=== PATIENT | male | born 1965 | race Hispanic/Latino ===

== ENCOUNTER 2017-01-02 12:09 | Observation (INO) | payer MEDICAID ==
[2017-01-02 12:56] VITALS: BMI 27.1
[2017-01-02] MEDS ORDERED: Morphine 4 MG/ML VIAL IVP STA (14:36)
[2017-01-02] MEDS ORDERED: Morphine 4 MG/ML VIAL ONE (14:58)
--- NOTE | 2017-01-02 15:03 | ED PDOC ---
HPI: Back Time Seen by Provider: 01/02/17 13:06 Chief Complaint (Nursing): Back Pain Chief Complaint (Provider): Back Pain History Per: Patient Onset/Duration Of Symptoms: Other (x 1 week) Current Symptoms Are (Timing): Still Present Additional Complaint(s): Raulito is a 51 year old male who presents to the Emergency Department complaining of lower back pain for the past week. States "he was ripping carpet from floor helping a friend". Since then, patient has been having lower back pain radiating down to his left leg. Patient states 2 days ago that he develop a "numbness wave-like sensation" left side of his body starting from left scalp down to abdomen, but not painful. Denies weakness, trauma, continence, hematuria, dysuria, history of stroke, and vision changes. PMD: No Family Provider Past Medical History Reviewed: Historical Data, Nursing Documentation, Vital Signs Vital Signs: Last Vital Signs Temp 97.3 F L 01/02/17 12:57 Pulse 74 01/02/17 12:57 Resp 18 01/02/17 12:57 BP 113/63 01/02/17 12:57 Pulse Ox 96 01/02/17 12:57 - Medical History PMH: Anxiety, Back Problems, Bipolar Disorder, Depression, Hypercholesterolemia Denies: Diabetes, Hepatitis, HIV, HTN, Seizures, Sexually Transmitted Disease - Surgical History Surgical History: Hernia Repair (b/l inguinal) - Family History Family History: States: Unknown Family Hx - Social History Current smoker - smoking cessation education provided: Yes (20 years) SMOKER/PACKS PER DAY:: 2 - Immunization History Hx Tetanus Toxoid Vaccination: No Hx Influenza Vaccination: No Hx Pneumococcal Vaccination: No - Home Medications Home Medications: Ambulatory Orders Medication Instructions Recorded Inland Carbonate [Inland 300 mg PO DAILY 04/08/16 Carbonate 300MG] hydrOXYzine Pamoate [Vistaril] 50 mg PO BID 04/08/16 - Allergies Allergies/Adverse Reactions: Allergies Allergy/AdvReac Type Severity Reaction Status Date / Time No Known Allergies Allergy Verified 01/02/17 12:57 NIHSS Stroke Scale - Date/Time Evaluation Performed Date Performed: 01/02/17 Time Performed: 14:36 When Was NIHSS Performed: 24 hours post onset S/S - How Severe is the Stroke Level of Consciousness: 0=Alert LOC to Questions: 0=Both comments correct Best Gaze: 0=Normal Visual: 0=No visual loss Facial: 0=Normal Motor Arm - Left: 0=No drift Motor Arm - Right: 0=No drift Motor Leg - Left: 0=No drift Motor Leg - Right: 0=No drift Limb Ataxia: 0=Absent Sensory: 0=Normal Best Language: 0=No aphasia Dysarthia: 0=Normal articulation Extinction & Inattention (Neglect): 0=Normal, no object rTPA Inclusion/Exclusion - Refusal of Treatment Patient Refused Treatment: No - Inclusion Criteria for Altepase Patient is 18 years or Older: Yes Clinical DX Ischemic Stroke Cause Neurological Deficit: Yes Time of Onset Established Less Than 270 Mins Before TX Begin: No Risk/Benefit Discussed With Patient/Family Member Present: Yes - Exclusion Criteria for Altepase Uncontrolled Hypertension at Time of TX (SBP>185 or DBP>110): No Active Internal Bleeding: No Known Bleeding Diathesis: No Evidence of an Intracranial Hemorrhage: No Evidence Major Acute Infarct w/ Signs Greater Than 1/3 MCA: No Suspicion of Subarachnoid Bleed on PreTX Eval(CT: neg bleed): No - Warning to TPA With Conditions Following Conditions Weighed Against Anticipated Benefit: Yes Condition: Stroke Serevity Too Mild Additional Condition (For 3-4.5 Hour Window): NIHSS Above 25 Review of Systems ROS Statement: Except As Marked, All Systems Reviewed And Found Negative Constitutional: Negative for: Weakness, Other (trauma) Genitourinary Male: Negative for: Dysuria, Incontinence, Hematuria Musculoskeletal: Positive for: Back Pain (Lower that radiates down to left leg) Neurological: Positive for: Numbness ("sensation"). Negative for: Other ( Vision Changes) Physical Exam - Reviewed Nursing Documentation Reviewed: Yes Vital Signs Reviewed: Yes - Physical Exam Appears: Positive for: Well, Non-toxic Head Exam: Positive for: ATRAUMATIC, NORMAL INSPECTION, NORMOCEPHALIC Skin: Positive for: Normal Color Eye Exam: Positive for: Normal appearance ENT: Positive for: Normal ENT Inspection Neck: Positive for: Normal Cardiovascular/Chest: Positive for: Regular Rate, Rhythm Respiratory: Positive for: Normal Breath Sounds. Negative for: Respiratory Distress Gastrointestinal/Abdominal: Positive for: Normal Exam Back: Negative for: L CVA Tenderness, R CVA Tenderness Neurologic/Psych: Positive for: Other (Equal Strength Bilateral). Negative for : Aphasia, Facial Droop - Laboratory Results Result Diagrams: 01/02/17 15:14 01/02/17 15:14 - ECG O2 Sat by Pulse Oximetry: 96 (RA) Pulse Ox Interpretation: Normal - Radiology X-Ray: Interpreted by Me (CXR) X-Ray Interpretation: No Acute Disease - Progress ED Course And Treament: Case d/w Dr. Ornelas and agrees CVA workup is necessary. Labs ordered. CT head w/o contrast ordered. Morphine 4mg IV, zofran 4mg IV ordered. Case d/w Dr. Arshad and arrangements made for 23 hr observation. Case d/w Dr. Mancilla, neuro surgeon's assistant, who requests MRI of bran, MRA head/neck to be done. Ativan 1mg IV ordered. Pt is "claustrophobic." ASA PO ordered. Medical Decision Making Medical Decision Making: Time: 14:35 Plan: - CT Head without Contrast - EKG - CMP - Troponin I - CBC - Chest Portable X-Ray - Morphine 4 mg IVP - Zofran Inj Scribe Attestation: Documented by Kendrick Zimmerman, acting as a scribe for Jose De Jesus Rodriguez PA-C Provider Scribe Attestation: All medical record entries made by the Scribe were at my direction and personally dictated by me. I have reviewed the chart and agree that the record accurately reflects my personal performance of the history, physical exam, medical decision making, and the department course for this patient. I have also personally directed, reviewed, and agree with the discharge instructions and disposition. Disposition - Clinical Impression Clinical Impression: Paresthesias - Disposition Disposition Time: 17:07 Condition: STABLE
[2017-01-02 15:18] LABS: BASO # 0.2 K/uL (0.0-0.2); BASO % 2.5 % (0.0-2.0); EOS # 0.4 K/uL (0.0-0.7); EOS % 6.5 % (0.0-4.0); HEMATOCRIT 46.2 % (35.0-51.0); LYMPH # 2.2 K/uL (1.0-4.3); LYMPH % 31.7 % (20.0-40.0); MEAN CELL VOLUME 94.6 fl (80.0-94.0); MEAN CORPUSCULAR HEMOGLOBIN 32.3 pg (27.0-31.0); MEAN CORPUSCULAR HGB CONC 34.1 g/dL (33.0-37.0); MEAN PLATELET VOLUME 7.9 fl (7.2-11.7); MONO # 0.7 K/uL (0.0-0.8); MONO % 10.7 % (0.0-10.0); NEUT # 3.4 K/uL (1.8-7.0); NEUT % 48.6 % (50.0-75.0); NRBC % 0.2 % (0.0-0.0); RED CELL DISTRIBUTION WIDTH 13.4 % (11.5-14.5); WHITE BLOOD COUNT 6.9 K/uL (4.8-10.8)
[2017-01-02 15:30] LABS: URINE BILIRUBIN NEGATIVE (NEGATIVE); URINE BLOOD NEGATIVE (NEGATIVE); URINE COLOR YELLOW (YELLOW); URINE GLUCOSE (UA) NEG (Normal); URINE KETONE NEGATIVE (NEGATIVE); URINE LEUKOCYTE ESTERASE NEG Leu/uL (Negative); URINE PROTEIN NEGATIVE (NEGATIVE); URINE UROBILINOGEN 0.2-1.0 mg/dL (0.2-1.0); WBC URINE 1 /hpf (0-5)
[2017-01-02 15:32] LABS: RBC URINE 3 /hpf (0-3)
[2017-01-02 15:45] LABS: ALB/GLOB RATIO 1.3 (1.0-2.1); ALKALINE PHOSPHATASE 54 U/L (38-126); ALT/SGPT 31 U/L (21-72); AST/SGOT 24 U/L (17-59); BILIRUBIN,TOTAL 0.3 mg/dl (0.2-1.3); BLOOD UREA NITROGEN 20 mg/dl (9-20); CALCIUM 9.1 mg/dL (8.4-10.2); CARBON DIOXIDE 27 mmol/L (22-30); CHLORIDE 105 mmol/L (98-107); GFR AFRICAN-AMERICAN > 60; GLUCOSE,RANDOM 84 mg/dL (75-110); POTASSIUM 3.8 MMOL/L (3.6-5.0); SODIUM 140 mmol/l (132-148); TOTAL PROTEIN 7.7 G/DL (6.3-8.2)
--- NOTE | 2017-01-02 16:03 | CT ---
PROCEDURE: CT HEAD WITHOUT CONTRAST. HISTORY: paresthesias COMPARISON: None available. TECHNIQUE: Axial computed tomography images were obtained through the head/brain without intravenous contrast. Radiation dose: Total exam DLP = 862.98 mGy-cm. This CT exam was performed using one or more of the following dose reduction techniques: Automated exposure control, adjustment of the mA and/or kV according to patient size, and/or use of iterative reconstruction technique. FINDINGS: HEMORRHAGE: No intracranial hemorrhage. BRAIN: No mass effect or edema. The oates-white matter differentiation appears intact. Please note that MRI with diffusion imaging is more sensitive in the detection of acute ischemic event. VENTRICLES: No hydrocephalus. CALVARIUM: Unremarkable. PARANASAL SINUSES: Unremarkable as visualized. No significant inflammatory changes. MASTOID AIR CELLS: Unremarkable as visualized. No inflammatory changes. OTHER FINDINGS: None. IMPRESSION: No acute intracranial pathology identified.
[2017-01-02] MEDS ORDERED: Gadodiamide 287 MG/ML VIAL (15ML) IV ONE (17:47)
[2017-01-02] MEDS ORDERED: Sodium Chloride 0.9% 0 ML IV ONE (17:47)
--- NOTE | 2017-01-02 17:49 | CP.PCM.HP ---
History of Present Illness - History of Present Illness History of Present Illness: 51 y/o male with a PMHx of HLD and herniated disc presented to [facility] ED complaining of back pain as well as left-sided numbness/tingling from his head down to his leg. Pt reports he was working and pulling carpet last week when he felt a "pop" sensation in his back. Pain was about 7/10, localized to his lower left side with an associated "static tv like feeling" going down his left leg. He reports the pain was similar to prior episodes and shrugged it off, thinking it would go away after a few days of rest and ibuprofen usage. He reports taking approx 4 500mg tablets of ibuprofen (~2000mg daily) since . On Monday morning he woke up and felt a "numbing like wave" over the left side of his body. The sensation started on the left side of his head and migrated down to his left arm and finally to his left leg. He reports the sensation gradually subsided and returned several times. He denies any associated headaches, changes in vision, lightheadedness, dizziness, CP/SOB/Palpitations, N/V/D/C, diaphoreis, facial weakness, clumsiness, slurred speech. He reports having a similar episode approx 10 years ago after doing cocaine. Last day of cocaine abuse was Monday evening. At bedside pt currently denies symptoms. No other complaints/concerns. ROS: as per HPI, 10 systems reviewed found to be negative PMD: none, last visit in [facility] >1 year ago PMHx: HLD, multiple vertebral herniations PsurgHx: denies Meds: Ibuprofen PRN for back pain FamilyHx: father murdered, mother alive, sister alive. Denies hx of CAD, DM, [place] , Stroke. SocialHx: 2PPD >10 years, 1 PPD since 16 prior to that, intermittent cocaine abuse since 19. Social ETOH abuse. -Next of kin: sister Sophia Barbosa -Code status: full code ED Course: Vitals on presentation: T: 97.3 F, HR 74, BP 113/63, RR 18, POX 96% RA Labs CBC: 6.9>15.7/46.2<238 CMP: wnl Coags: 10.7/1.0/29.1 Troponin I: <0.0120 UA UTOX: + cocaine Imaging Noncontrast head CT: no acute hemorrhage MRI/MRA: pending CXR EKG Treatment: aspirin, zofran, ativan, morphine Consults: neurology admitted to tele Present on Admission - Present on Admission Any Indicators Present on Admission: No History of DVT/PE: No History of Uncontrolled Diabetes: No Urinary Catheter: No Decubitus Ulcer Present: No Past Patient History - Past Social History Smoking Status: Heavy Smoker > 10 Cigarettes Daily Alcohol: Social Drugs: Cocaine Home Situation {Lives}: Alone - CARDIAC Hx Hypercholesterolemia: Yes Hx Hypertension: No - PULMONARY Hx Tuberculosis: No - NEUROLOGICAL Hx Seizures: No - HEMATOLOGICAL/ONCOLOGICAL Hx Human Immunodeficiency Virus (HIV): No - GENITOURINARY/GYNECOLOGICAL Hx Sexually Transmitted Disorders: No - PSYCHIATRIC Hx Anxiety: Yes Hx Bipolar Disorder: Yes Hx Depression: Yes - SURGICAL HISTORY Hx Surgeries: Yes Other/Comment: bilateral hernia when child. - ANESTHESIA Hx Anesthesia: Yes Hx Anesthesia Reactions: No Meds Allergies/Adverse Reactions: Allergies Allergy/AdvReac Type Severity Reaction Status Date / Time No Known Allergies Allergy Verified 01/02/17 12:57 Physical Exam - Constitutional Appears: Non-toxic, No Acute Distress - Head Exam Head Exam: ATRAUMATIC, NORMOCEPHALIC - Eye Exam Eye Exam: EOMI. absent: Conjunctival injection, Scleral icterus Pupil Exam: PERRL. absent: Miosis, Mydriatic - ENT Exam ENT Exam: Mucous Membranes Moist - Neck Exam Neck exam: Positive for: Full Rom Additional comments: spurlings test negative bilaterally - Respiratory Exam Respiratory Exam: Clear to Auscultation Bilateral, NORMAL BREATHING PATTERN. absent: Accessory Muscle Use, Rales, Rhonchi, Wheezes, Respiratory Distress - Cardiovascular Exam Cardiovascular Exam: REGULAR RHYTHM, RRR, +S1, +S2. absent: Diastolic murmur, JVD, Rubs, +S4, Systolic Murmur - GI/Abdominal Exam GI & Abdominal Exam: Normal Bowel Sounds, Soft. absent: Pulsatile Mass, Tenderness - Extremities Exam Extremities exam: Positive for: normal capillary refill, normal inspection, pedal pulses present. Negative for: calf tenderness, pedal edema, tenderness - Back Exam Back exam: paraspinal tenderness Additional comments: straight leg raise + at 45 degrees on the left - Neurological Exam Neurological exam: Alert, CN II-XII Intact, Normal Gait, Oriented x3, Reflexes Normal - Expanded Neurological Exam Expanded Patient oriented to: person, place, time Speech: Fluid Speech Cranial nerves: EOM's Intact: Normal, Facial Sensation: Normal, Gag Reflex: Normal Ataxia: No Cerebellar Function: Finger to Nose: Normal, Heel to [place]: Normal, Romberg: Normal Upper motor neuron: Babinski Sign: Normal Neuro motor strength exam: Left Upper Extremity: 5, Right Upper Extremity: 5, Left Lower Extremity: 5, Right Lower Extremity: 5 DTR: Achilles Tendon Left: 1+, Achilles Tendon Right: 1+, Patellar Left: 1+, Patellar Right: 1+ Coma Scale Eye Opening: SPONTANEOUS Coma Scale Motor Response: OBEYS COMMANDS Coma Scale Verbal: Oriented Coma Scale Total: 15 - Psychiatric Exam Psychiatric exam: Normal Affect - Skin Skin Exam: Dry, Intact, Normal Color, Warm Results - Vital Signs Recent Vital Signs: Last Vital Signs Temp 97.3 F L 01/02/17 12:57 Pulse 74 01/02/17 12:57 Resp 18 01/02/17 12:57 BP 113/63 01/02/17 12:57 Pulse Ox 96 01/02/17 17:14 - Labs Result Diagrams: 01/02/17 15:14 01/02/17 15:14 Labs: Laboratory Results - last 24 hr 01/02/17 01/02/17 01/02/17 15:14 15:14 15:14 WBC 6.9 RBC 4.88 Hgb 15.7 Hct 46.2 MCV 94.6 H D MCH 32.3 H MCHC 34.1 RDW 13.4 Plt Count 238 MPV 7.9 Neut % (Auto) 48.6 L Lymph % (Auto) 31.7 [place] % (Auto) 10.7 H Eos % (Auto) 6.5 H Baso % (Auto) 2.5 H Neut # 3.4 Lymph # 2.2 [place] # 0.7 Eos # 0.4 Baso # 0.2 Sodium 140 Potassium 3.8 Chloride 105 Carbon Dioxide 27 Anion Gap 12 BUN 20 Creatinine 0.8 Est GFR ( Amer) > 60 Est GFR (Non-Af Amer) > 60 Random Glucose 84 Calcium 9.1 Total Bilirubin 0.3 AST 24 ALT 31 Alkaline Phosphatase 54 Troponin I < 0.0120 Total Protein 7.7 Albumin 4.3 Globulin 3.4 Albumin/Globulin Ratio 1.3 Urine Color Yellow Urine Clarity Clear Urine pH 7.0 Ur Specific [place] 1.017 Urine Protein Negative Urine Glucose (UA) Neg Urine Ketones Negative Urine Blood Negative Urine Nitrate Negative Urine Bilirubin Negative Urine Urobilinogen 0.2-1.0 Ur Leukocyte Esterase Neg Urine RBC (Auto) 3 Urine Microscopic WBC 1 Assessment & Plan - Assessment and Plan (Free Text) Assessment: Assessment: 51 y/o male with PMHx of HLD, back pain, and substance abuse admitted for evaluation of suspected TIA. Plan: 1) Suspected TIA: -ABCD2 score: 2 (symptom duration >60mins) -NIHSS: 0 -monitor vitals, BP currently stable -admitted to [facility] for cardiac monitoring -Noncontrast Head CT: no acute intracranial pathology -Coags: wnl -CMP: wnl -Troponin I: negative (<0.0120) -Lipid panel: pending -TSH: pending -Hemoglobin A1c: pending -ESR: pending -Echo: pending -Zofran 4mg IVP Q6H PRN nausea -s/p 325mg ASA in ED -Neurology consult: pending Brain/Neck MRA, will f/u recommendations 2) Chronic Back Pain with Sciatica: -Tylenol 650mg Q6H PRN moderate pain -Morphine 2mg IVP Q6H PRN severe pain 3) History of Cocaine Abuse: -UTOX: positive for cocaine metabolites -monitor for signs/symptoms of withdrawal. -Ativan 1mg Q6H PRN agitation 4) DVT Prophylaxis: -325mg Aspirin given in ED -SCDs PRN -Lovenox 40mg SC QD
[2017-01-02 19:36] LABS: PARTIAL THROMBOPLASTIN TIME 29.1 Seconds (25.6-37.1)
[2017-01-02 20:11] LABS: THYROID STIMULATING HORMONE 2.59 mIU/ML (0.46-4.68)
[2017-01-03 04:50] VITALS: RESP 18
[2017-01-03] MEDS ORDERED: Enoxaparin 40 mg Syringe SC SCH (09:00)
--- NOTE | 2017-01-03 10:02 | RAD ---
HISTORY: clearance COMPARISON: Chest radiographs 11/10/2015. FINDINGS: LUNGS: No active pulmonary disease. PLEURA: No significant pleural effusion identified, no pneumothorax apparent. CARDIOVASCULAR: Normal. OSSEOUS STRUCTURES: No significant abnormalities. VISUALIZED UPPER ABDOMEN: Normal. OTHER FINDINGS: None. IMPRESSION: No interval acute cardiopulmonary disease appreciated.
--- NOTE | 2017-01-03 10:58 | CARD ---
APPROVED REPORT EKG Measurement Heart [id number] <Conclusion> Normal sinus rhythm Normal ECG
[2017-01-03 12:05] VITALS: BP 112/68; PULSE 72; TEMP 98.5; O2SAT 97
--- NOTE | 2017-01-03 12:07 | CARD ---
APPROVED REPORT EXAM: Two-dimensional and M-mode echocardiogram with Doppler and color Doppler. Other Information Quality : GoodRhythm : NSR INDICATION CVA/TIA 2D DIMENSIONS IVSd0.94 (0.7-1.1cm)LVDd4.51 (3.9-5.9cm) LVOT Diameter2.13 (1.8-2.4cm)PWd0.98 (0.7-1.1cm) IVSs1.24 (0.8-1.2cm)LVDs2.79 (2.5-4.0cm) FS (%) 38.3 %PWs1.37 (0.8-1.2cm) M-Mode DIMENSIONS Left Atrium (MM)2.85 (2.5-4.0cm)IVSd0.85 (0.7-1.1cm) Aortic Root3.24 (2.2-3.7cm)LVDd5.09 (4.0-5.6cm) Aortic Cusp Exc.2.03 (1.5-2.0cm)PWd1.15 (0.7-1.1cm) IVSs1.82 cmFS (%) 47 % LVDs2.68 (2.0-3.8cm)PWs1.32 cm Mitral Valve MV E Gvvueuvy06.6cm/sMV DECEL [id number] A Dyipnxcb21.5cm/s MV WFH97dmL/A ratio1.1MVA (PHT)3.39cm2 TDI Lateral E' Peak V14.42cm/sMedial E' Peak V6.68cm/sE/Lateral E'4.5 E/Medial E'9.7 Pulmonary Valve PV Peak Bvgdxqzb36.9cm/s LEFT VENTRICLE The left ventricle is normal size. There is normal left ventricular wall thickness. The left ventricular function is normal. The left ventricular ejection fraction is within the normal range. The Ejection Fraction is 65-70%. There is normal LV segmental wall motion. The left ventricular diastolic function is normal. No left ventricle thrombus noted on this study. There is no mass noted in the left ventricle. RIGHT VENTRICLE The right ventricle is normal size. There is normal right ventricular wall thickness. The right ventricular systolic function is normal. ATRIA The left atrium size is normal. The right atrium size is normal. The interatrial septum is intact with no evidence for an atrial septal defect. AORTIC VALVE The aortic valve is normal in structure. No aortic regurgitation is present. There is no aortic valvular stenosis. There is no aortic valvular vegetation. MITRAL VALVE The mitral valve is normal in structure. There is no evidence of mitral valve prolapse. There is no mitral valve stenosis. There is no mitral valve regurgitation noted. TRICUSPID VALVE The tricuspid valve is normal in structure. There is no tricuspid valve regurgitation noted. There is no tricuspid valve prolapse or vegetation. There is no tricuspid valve stenosis. PULMONIC VALVE The pulmonary valve is normal in structure. There is no pulmonic valvular regurgitation. There is no pulmonic valvular stenosis. GREAT VESSELS The aortic root is normal in size. The IVC is normal in size and collapses >50% with inspiration. PERICARDIAL EFFUSION The pericardium appears normal. There is no pleural effusion. <Conclusion> The left ventricle is normal size. The left ventricular function is normal. The left ventricular ejection fraction is within the normal range. The Ejection Fraction is 65-70%.
--- NOTE | 2017-01-03 12:32 | CP.PCM.DIS ---
Provider - Provider Date of Admission: 01/02/17 17:04 Attending physician: Loretta Holden MD Time Spent in preparation of Discharge (in minutes): 30 Diagnosis - Discharge Diagnosis (1) TIA (transient ischemic attack) Status: Acute (2) Cocaine abuse Status: Acute Hospital Course - Lab Results Lab Results: Most Recent Lab Values WBC 6.9 K/uL (4.8-10.8) 01/02/17 15:14 RBC 4.88 Mil/uL (4.40-5.90) 01/02/17 15:14 Hgb 15.7 g/dL (12.0-18.0) 01/02/17 15:14 Hct 46.2 % (35.0-51.0) 01/02/17 15:14 MCV 94.6 fl (80.0-94.0) H D 01/02/17 15:14 MCH 32.3 pg (27.0-31.0) H 01/02/17 15:14 MCHC 34.1 g/dL (33.0-37.0) 01/02/17 15:14 RDW 13.4 % (11.5-14.5) 01/02/17 15:14 Plt Count 238 K/uL (130-400) 01/02/17 15:14 MPV 7.9 fl (7.2-11.7) 01/02/17 15:14 Neut % (Auto) 48.6 % (50.0-75.0) L 01/02/17 15:14 Lymph % (Auto) 31.7 % (20.0-40.0) 01/02/17 15:14 [place] % (Auto) 10.7 % (0.0-10.0) H 01/02/17 15:14 Eos % (Auto) 6.5 % (0.0-4.0) H 01/02/17 15:14 Baso % (Auto) 2.5 % (0.0-2.0) H 01/02/17 15:14 Neut # 3.4 K/uL (1.8-7.0) 01/02/17 15:14 Lymph # 2.2 K/uL (1.0-4.3) 01/02/17 15:14 [place] # 0.7 K/uL (0.0-0.8) 01/02/17 15:14 Eos # 0.4 K/uL (0.0-0.7) 01/02/17 15:14 Baso # 0.2 K/uL (0.0-0.2) 01/02/17 15:14 ESR 19 mm/hr (0-20) 01/03/17 04:20 PT 10.7 Seconds (9.8-13.1) 01/02/17 19:14 INR 1.0 (0.9-1.2) 01/02/17 19:14 APTT 29.1 Seconds (25.6-37.1) 01/02/17 19:14 Sodium 140 mmol/l (132-148) 01/02/17 15:14 Potassium 3.8 MMOL/L (3.6-5.0) 01/02/17 15:14 Chloride 105 mmol/L (98-107) 01/02/17 15:14 Carbon Dioxide 27 mmol/L (22-30) 01/02/17 15:14 Anion Gap 12 (10-20) 01/02/17 15:14 BUN 20 mg/dl (9-20) 01/02/17 15:14 Creatinine 0.8 mg/dl (0.8-1.5) 01/02/17 15:14 Est GFR ( Amer) > 60 01/02/17 15:14 Est GFR (Non-Af Amer) > 60 01/02/17 15:14 Random Glucose 84 mg/dL (75-110) 01/02/17 15:14 Calcium 9.1 mg/dL (8.4-10.2) 01/02/17 15:14 Total Bilirubin 0.3 mg/dl (0.2-1.3) 01/02/17 15:14 AST 24 U/L (17-59) 01/02/17 15:14 ALT 31 U/L (21-72) 01/02/17 15:14 Alkaline Phosphatase 54 U/L (38-126) 01/02/17 15:14 Troponin I < 0.0120 ng/mL (0.00-0.120) 01/02/17 15:14 Total Protein 7.7 G/DL (6.3-8.2) 01/02/17 15:14 Albumin 4.3 g/dL (3.5-5.0) 01/02/17 15:14 Globulin 3.4 gm/dL (2.2-3.9) 01/02/17 15:14 Albumin/Globulin Ratio 1.3 (1.0-2.1) 01/02/17 15:14 Triglycerides 78 mg/DL (0-149) 01/02/17 19:14 Cholesterol 219 mg/dL (0-199) H 01/02/17 19:14 LDL Cholesterol Direct 148 mg/dL (0-129) H 01/02/17 19:14 HDL Cholesterol 56 MG/DL (30-70) 01/02/17 19:14 TSH 3rd Generation 2.59 mIU/ML (0.46-4.68) 01/02/17 19:14 Urine Color Yellow (YELLOW) 01/02/17 15:14 Urine Clarity Clear (Clear) 01/02/17 15:14 Urine pH 7.0 (5.0-8.0) 01/02/17 15:14 Ur Specific [place] 1.017 (1.003-1.030) 01/02/17 15:14 Urine Protein Negative mg/dL (NEGATIVE) 01/02/17 15:14 Urine Glucose (UA) Neg mg/dL (Normal) 01/02/17 15:14 Urine Ketones Negative mg/dL (NEGATIVE) 01/02/17 15:14 Urine Blood Negative (NEGATIVE) 01/02/17 15:14 Urine Nitrate Negative (NEGATIVE) 01/02/17 15:14 Urine Bilirubin Negative (NEGATIVE) 01/02/17 15:14 Urine Urobilinogen 0.2-1.0 mg/dL (0.2-1.0) 01/02/17 15:14 Ur Leukocyte Esterase Neg Ml/uL (Negative) 01/02/17 15:14 Urine RBC (Auto) 3 /hpf (0-3) 01/02/17 15:14 Urine Microscopic WBC 1 /hpf (0-5) 01/02/17 15:14 Urine Opiates Screen Negative (NEGATIVE) 01/02/17 19:16 Urine Methadone Screen Negative (NEGATIVE) 01/02/17 19:16 Ur Barbiturates Screen Negative (NEGATIVE) 01/02/17 19:16 Ur Phencyclidine Scrn Negative (NEGATIVE) 01/02/17 19:16 Ur Amphetamines Screen Negative (NEGATIVE) 01/02/17 19:16 U Benzodiazepines Scrn Negative (NEGATIVE) 01/02/17 19:16 U Oth Cocaine Metabols Positive (NEGATIVE) H 01/02/17 19:16 U Cannabinoids Screen Negative (NEGATIVE) 01/02/17 19:16 - Hospital Course Hospital Course: Pt. admitted for symptoms of TIA because of complaints of Left sided numbness without weakness that started [address] head unremarkable. UDS positive for cocaine. Labs positive for Hyperlipidemia. Pt. progress discussed with Dr. Mancilla Neurologist, MRI ordered by Neurologist, but not completed because of pt. clautrophobia. Pt. symptoms resolved overnight. Discharge Meds Atorvastatin 40mg ASA 81mg [facility] appointment January [address] Arshad at 2p.m. E.R. precautions for headache, weakness, slurred speech Discharge Exam - Head Exam Head Exam: ATRAUMATIC, NORMOCEPHALIC - Eye Exam Eye Exam: Normal appearance. absent: Scleral icterus - ENT Exam ENT Exam: Mucous Membranes Moist - Neck Exam Neck exam: Full Rom - Respiratory Exam Respiratory Exam: Clear to PA & Lateral, NORMAL BREATHING PATTERN - Cardiovascular Exam Cardiovascular Exam: REGULAR RHYTHM, +S1, +S2 - GI/Abdominal Exam GI & Abdominal Exam: Soft. absent: Tenderness - Extremities Exam Extremities exam: normal capillary refill - Neurological Exam Neurological exam: Alert, CN II-XII Intact, Normal Gait, Oriented x3 - Psychiatric Exam Psychiatric exam: Normal Affect, Normal Mood Discharge Plan - Discharge Medications Prescriptions: Aspirin 81 mg PO DAILY 30 Days #30 tab.chew Atorvastatin [Lipitor] 40 mg PO DAILY #30 tab - Follow Up Plan Condition: STABLE Disposition: HOME/ ROUTINE Instructions: Weakness (GEN), Back Pain (GEN) Additional Instructions: Referal [facility] Neurology [facility] at 2:[address] [place] [address] Referrals: Konstantin Mancilla MD [Medical Doctor] -
== END 2017-01-03 15:03 | disposition home or self-care (01) ==
LOC: H.ER 12:09 → H.ERHOLD 17:04 → H.TEL 21:15
PROVIDERS: ADMIT Family Medicine Geriatric Medicine; ATTEND Family Medicine Geriatric Medicine
DX: G45.9 Transient cerebral ischemic attack, unspecified (principal); F14.10 Cocaine abuse, uncomplicated; E78.5 Hyperlipidemia, unspecified; F17.210 Nicotine dependence, cigarettes, uncomplicated; G89.29 Other chronic pain; F40.240 Claustrophobia; M54.30 Sciatica, unspecified side
CPT/HCPCS: 36415; 70450; 71010; 80053; 80061; 80324; 80345; 80346; 80349; 80353; 80358; 80361; 81003; 83036; 83992; 84443; 84484; 85025; 85610; 85651; 85730; 93005; 93306; 96374; 99285; G0378; J1650; J2060; J2270; J2405

== ENCOUNTER 2017-03-10 09:18 | Emergency (ER) | payer MEDICAID ==
[2017-03-10 09:22] VITALS: BMI 26.4
[2017-03-10 09:23] VITALS: BP 115/77; RESP 20; TEMP 97.8; O2SAT 98
[2017-03-10 09:34] VITALS: PULSE 90
--- NOTE | 2017-03-10 09:55 | ED PDOC ---
HPI: Psych/Substance Abuse Time Seen by Provider: 03/10/17 09:43 Chief Complaint (Nursing): Psychiatric Evaluation Chief Complaint (Provider): Depression History Per: Patient History/Exam Limitations: no limitations Onset/Duration Of Symptoms: Days (today) Additional Complaint(s): Pt. with thoughts of hurting self, gone now. Is depressed. Called out from work today. No numbness, tingles, weakness. Uses coccaine. No alcohol. No pain. No cough. Did not do anything to hurt himself. Past Medical History Reviewed: Nursing Documentation, Vital Signs Vital Signs: Last Vital Signs Temp 97.8 F 03/10/17 09:28 Pulse 90 03/10/17 09:28 Resp 20 03/10/17 09:28 BP 115/77 03/10/17 09:28 Pulse Ox 98 03/10/17 09:28 - Medical History PMH: Anxiety, Back Problems, Bipolar Disorder, Depression Denies: Diabetes, Hepatitis, HIV, HTN, Chronic Kidney Disease, Seizures, Sexually Transmitted Disease - Surgical History Surgical History: Hernia Repair (b/l inguinal) - Family History Family History: States: Unknown Family Hx - Social History Current smoker - smoking cessation education provided: Yes Drugs: Cocaine - Immunization History Hx Tetanus Toxoid Vaccination: No Hx Influenza Vaccination: No Hx Pneumococcal Vaccination: No - Home Medications Home Medications: Ambulatory Orders Medication Instructions Recorded Red Devil Carbonate [Red Devil 300 mg PO DAILY 04/08/16 Carbonate 300MG] hydrOXYzine Pamoate [Vistaril] 50 mg PO BID 04/08/16 Aspirin 81 mg PO DAILY 30 Days #30 tab.chew 01/03/17 Atorvastatin [Lipitor] 40 mg PO DAILY #30 tab 01/03/17 - Allergies Allergies/Adverse Reactions: Allergies Allergy/AdvReac Type Severity Reaction Status Date / Time No Known Allergies Allergy Verified 03/10/17 09:27 Review of Systems ROS Statement: Except As Marked, All Systems Reviewed And Found Negative Psych: Positive for: Depression, Suicidal ideation Physical Exam - Reviewed Nursing Documentation Reviewed: Yes Vital Signs Reviewed: Yes - Physical Exam Appears: Positive for: Non-toxic, No Acute Distress Head Exam: Positive for: ATRAUMATIC, NORMAL INSPECTION, NORMOCEPHALIC Skin: Positive for: Normal Color, Warm, DRY Eye Exam: Positive for: EOMI, Normal appearance, PERRL ENT: Positive for: Normal ENT Inspection Neck: Positive for: Normal, Painless ROM Cardiovascular/Chest: Positive for: Regular Rate, Rhythm Respiratory: Positive for: CNT, Normal Breath Sounds Gastrointestinal/Abdominal: Positive for: Normal Exam, Bowel Sounds, Soft. Negative for: Tenderness Back: Positive for: Normal Inspection. Negative for: L CVA Tenderness, R CVA Tenderness Extremity: Positive for: Normal ROM. Negative for: Tenderness, Pedal Edema Neurologic/Psych: Positive for: Alert, procedures tech II-XII, Oriented. Negative for: Motor/Sensory Deficits - ECG O2 Sat by Pulse Oximetry: 98 Pulse Ox Interpretation: Normal - Progress ED Course And Treament: 1116: Crisis saw pt. Does not meet criteria for admit. Fu with pcp. AAOx3. Not suicidal or homicidal at this time. Disposition - Clinical Impression Clinical Impression: Depressed - Patient ED Disposition Is Patient to be Admitted: No Counseled Patient/Family Regarding: Diagnosis, Need For Followup - Disposition Referrals: [facility] [Outside] - 03/13/17 Disposition: Routine/Home Disposition Time: 11:18 Condition: STABLE Additional Instructions: Return if not better in 3 days. Instructions: Depression (ED) Forms: [facility] ED School/Work Excuse
== END 2017-03-10 11:51 | disposition home or self-care (01) ==
LOC: H.ER 09:18
DX: F32.9 Major depressive disorder, single episode, unspecified (principal); F31.9 Bipolar disorder, unspecified; F41.9 Anxiety disorder, unspecified; Z79.82 Long term (current) use of aspirin

== ENCOUNTER 2017-03-29 02:59 | Inpatient (IN) | payer MEDICAID ==
[2017-03-29 02:59] VITALS: BMI 26.4
[2017-03-29] MEDS ORDERED: Sodium Chloride 0.9% 1,000 ML IV STA ×2 (03:34→05:39)
[2017-03-29 03:53] LABS: BASO # 0.1 K/uL (0.0-0.2); EOS # 0.2 K/uL (0.0-0.7); EOS % 2.3 % (0.0-4.0); HEMOGLOBIN 15.9 g/dL (12.0-18.0); LYMPH # 2.1 K/uL (1.0-4.3); LYMPH % 29.5 % (20.0-40.0); MEAN CELL VOLUME 92.7 fl (80.0-94.0); MEAN CORPUSCULAR HEMOGLOBIN 32.5 pg (27.0-31.0); MONO # 0.6 K/uL (0.0-0.8); MONO % 8.3 % (0.0-10.0); NEUT # 4.3 K/uL (1.8-7.0); NEUT % 58.9 % (50.0-75.0); RBC 4.88 Mil/uL (4.40-5.90); RED CELL DISTRIBUTION WIDTH 12.7 % (11.5-14.5); WHITE BLOOD COUNT 7.3 K/uL (4.8-10.8)
[2017-03-29 04:02] LABS: ALB/GLOB RATIO 1.3 (1.0-2.1); ALBUMIN 4.4 g/dL (3.5-5.0); CALCIUM 9.6 mg/dL (8.4-10.2); GFR AFRICAN-AMERICAN > 60; GFR NON-AFRICAN AMERICAN > 60
--- NOTE | 2017-03-29 04:45 | ED PDOC ---
HPI: Psych/Substance Abuse Time Seen by Provider: 03/29/17 03:12 Chief Complaint (Nursing): Substance Abuse Chief Complaint (Provider): Substance Abuse History Per: Patient History/Exam Limitations: no limitations Onset/Duration Of Symptoms: Hrs (x1) Additional Complaint(s): Raulito Barbosa is a 51 year old male with a history of depression and drug abuse that presents to the ED for substance abuse. Patient reports that one hour prior to arrival in ED, he took 20 pills of 300 mg of Moclips. He states that he did not want to kill himself, but that he wanted to hurt himself. Patient reports that 20 minutes after ingestion he felt nauseated and vomited a little bit, but upon arrival in ED had a large, forceful vomit. Patient denies abdominal pain, but reports that he still feels nauseated. Past Medical History Reviewed: Historical Data, Nursing Documentation, Vital Signs Vital Signs: Last Vital Signs Temp 98.0 F 03/29/17 03:10 Pulse 72 03/29/17 04:30 Resp 15 03/29/17 04:30 BP 123/67 03/29/17 04:30 Pulse Ox 98 03/29/17 04:30 - Medical History PMH: Anxiety, Back Problems, Bipolar Disorder, Depression, Hypercholesterolemia Denies: Diabetes, Hepatitis, HIV, HTN, Chronic Kidney Disease, Seizures, Sexually Transmitted Disease - Surgical History Surgical History: Hernia Repair (b/l inguinal) - Family History Family History: States: Unknown Family Hx - Social History Drugs: Other (Patient admits to drug abuse) - Immunization History Hx Tetanus Toxoid Vaccination: No Hx Influenza Vaccination: No Hx Pneumococcal Vaccination: No - Home Medications Home Medications: Ambulatory Orders Medication Instructions Recorded Moclips Carbonate [Moclips 300 mg PO DAILY 04/08/16 Carbonate 300MG] hydrOXYzine Pamoate [Vistaril] 50 mg PO BID 04/08/16 Aspirin 81 mg PO DAILY 30 Days #30 tab.chew 01/03/17 Atorvastatin [Lipitor] 40 mg PO DAILY #30 tab 01/03/17 - Allergies Allergies/Adverse Reactions: Allergies Allergy/AdvReac Type Severity Reaction Status Date / Time No Known Allergies Allergy Verified 03/10/17 09:27 Review of Systems ROS Statement: Except As Marked, All Systems Reviewed And Found Negative Gastrointestinal: Positive for: Nausea Psych: Positive for: Depression, Suicidal ideation Physical Exam - Reviewed Nursing Documentation Reviewed: Yes Vital Signs Reviewed: Yes - Physical Exam Appears: Positive for: Non-toxic, No Acute Distress Head Exam: Positive for: ATRAUMATIC, NORMOCEPHALIC Skin: Positive for: Normal Color, Warm Eye Exam: Positive for: EOMI, Normal appearance, PERRL ENT: Positive for: Normal ENT Inspection Cardiovascular/Chest: Positive for: Regular Rate, Rhythm. Negative for: Murmur Respiratory: Positive for: Normal Breath Sounds. Negative for: Wheezing Gastrointestinal/Abdominal: Positive for: Normal Exam, Soft. Negative for: Tenderness Back: Positive for: Normal Inspection. Negative for: L CVA Tenderness, R CVA Tenderness Extremity: Positive for: Normal ROM. Negative for: Deformity, Swelling Neurologic/Psych: Positive for: Alert, Oriented, Mood/Affect (Depressed affect) . Negative for: Motor/Sensory Deficits - Laboratory Results Result Diagrams: 03/29/17 03:49 03/29/17 03:49 - ECG O2 Sat by Pulse Oximetry: 98 (RA) Pulse Ox Interpretation: Normal Medical Decision Making Medical Decision Making: Impression: Suicidal Ideation, Moclips Overdose Plan: * Chest X-Ray * EKG * CMP * Acetaminophen * Alcohol Serum * Moclips * Salicylate * Urine Drug Screen * Urinalysis * NaCl 1000 mLs at 1000 mLs/hr * Zofran 4 mg IV * 1:1 Obs * Reevaluation 7:00 Patient signed out to Dr. Williamson pending repeat lead level at 6 hour bailey and crisis evaluation. Clinical Impression: Moclips Overdose Scribe Attestation: Documented by Nuris Alvarez, acting as a scribe for Ramirez Guevara MD. Provider Scribe Attestation: All medical record entries made by the Scribe were at my direction and personally dictated by me. I have reviewed the chart and agree that the record accurately reflects my personal performance of the history, physical exam, medical decision making, and the department course for this patient. I have also personally directed, reviewed, and agree with the discharge instructions and disposition. Disposition - Clinical Impression Clinical Impression: Moclips overdose - Patient ED Disposition Is Patient to be Admitted: Transfer of Care - Disposition Disposition: Transfer of Care Disposition Time: 07:00 Condition: FAIR Forms: Knowrom (Eritrean) Patient Signed Over To: Dom Williamson
[2017-03-29 04:47] LABS: URINE BILIRUBIN NEGATIVE (NEGATIVE); URINE BLOOD NEGATIVE (NEGATIVE); URINE CLARITY SLIGHTY-CLOUDY (Clear); URINE COLOR YELLOW (YELLOW); URINE GLUCOSE (UA) NEG (Normal); URINE LEUKOCYTE ESTERASE NEG Leu/uL (Negative); URINE NITRATE NEGATIVE (NEGATIVE); URINE PROTEIN NEGATIVE (NEGATIVE); URINE UROBILINOGEN 0.2-1.0 mg/dL (0.2-1.0)
[2017-03-29 04:50] LABS: ALT/SGPT 32 U/L (21-72); AST/SGOT 29 U/L (17-59); BLOOD UREA NITROGEN 22 mg/dl (9-20)
[2017-03-29 04:53] LABS: ACETAMINOPHEN < 10.0 ug/ml (10.0-30.0); SALICYLATE < 1.0 mg/dl
[2017-03-29 04:55] LABS: BARBITURATES, UR NEGATIVE (NEGATIVE)
[2017-03-29 04:56] LABS: BENZODIAZEPINES, UR NEGATIVE (NEGATIVE); OPIATES, UR NEGATIVE (NEGATIVE); PHENCYCLIDINE, UR NEGATIVE (NEGATIVE)
--- NOTE | 2017-03-29 07:21 | ED PDOC ---
- Laboratory Results Result Diagrams: 03/29/17 03:49 03/29/17 03:49 - ECG O2 Sat by Pulse Oximetry: 98 (RA) Pulse Ox Interpretation: Normal Medical Decision Making Medical Decision Making: Time: 7:00 --Patient transferred to [place] by Dr. Ramirez Guevara pending repeat lithium, repeat EKG, and crisis evaluation. Time: 11:00 --Repeat lithium level and EKG are both normal. Patient is cleared for crisis evaluation. Time: 13:46 --Patient will be admitted to [facility] for suicidal ideation. Scribe Attestation: Documented by Gian Quach, acting as a scribe for Dom Williamson MD Provider Scribe Attestation: All medical record entries made by the Scribe were at my direction and personally dictated by me. I have reviewed the chart and agree that the record accurately reflects my personal performance of the history, physical exam, medical decision making, and the department course for this patient. I have also personally directed, reviewed, and agree with the discharge instructions and disposition. Disposition Discussed With : Cathleen Lockhart Doctor Will See Patient In The: ED Counseled Patient/Family Regarding: Studies Performed, Diagnosis - Clinical Impression Clinical Impression: Wolf Trap overdose - POA Present On Arrival: None - Disposition Disposition: Discharged to [facility] Disposition Time: 13:15 Condition: FAIR
--- NOTE | 2017-03-29 09:01 | RAD ---
PROCEDURE: CHEST RADIOGRAPH, 1 VIEW HISTORY: overdose COMPARISON: 01/02/2017 FINDINGS: LUNGS: No consolidation. Current lung inspiration more shallow. PLEURA: No pneumothorax or pleural fluid seen. CARDIOVASCULAR: Normal. OSSEOUS STRUCTURES: Thoracic spondylosis VISUALIZED UPPER ABDOMEN: Normal. OTHER FINDINGS: None. IMPRESSION: No active disease.
[2017-03-29 11:18] VITALS: O2SAT 98
[2017-03-29] MEDS ORDERED: DiphenhydrAMINE 50 mg/ml Inj IM PRN (14:21)
[2017-03-29] MEDS ORDERED: Alum-Mag Hydrox-Simethicone Susp (30 mL) PO PRN (14:21)
[2017-03-29] MEDS ORDERED: Magnesium Hydroxide Susp 30 ml UD PO PRN (14:21)
--- NOTE | 2017-03-29 16:43 | PCM.BM ---
<Smith Russell - Last Filed: 03/29/17 16:40> Treatment assets and liabiliti Patient Assests: adapts well, cooperative, self-reliant, ADL independent, negotiates basic needs Patient Liabilities: financial problems, relationship conflicts, substance abuse , legal issue - Milieu Protocol Maintain good personal hygiene: daily Encourage regular showers, daily Remind patient to perform daily oral care, daily Assist patient to perform ADL's Conduct patient checks and document Observation sheet: Q15 minutes Maintain personal safety: every shift Educate patient to report safety concerns to staff, every shift Monitor environment for contraband/sharps Medication safety: Monitor for expected outcome, potential side effects: daily, Assess barriers to learning: daily, Assess readiness for medication education: daily <Maurice Murry - Last Filed: 03/31/17 16:58> Family Contact Family involvement: Famliy/SO not involved Family contact: Patient declines to allow family contact at present Family contact name: Pt denied. - Goals for Treatment Patient goals for treatment: Pt reported he was still too depressed to speak about goals. Discharge/Continuing Care - Education Needs Education Needs: Patient Medication, Patient Diagnosis/Disease Process, Patient Coping Skills, Patient Community resources, Patient Aftercare Safety Plan - Discharge Discharge Criteria: Tolerates medication w/o severe side effects, Free of Suicidal thoughts, Free of agitation, Normal sleep pattern, Ability to care for self, No longer exhibiting s/s of withdrawal, Reduction of target symptoms Discharge to:: Home - Additional Comments 03/31/17 16:59 Pt appeared disengaged in treatment team and only asked that he be able to return to bed to sleep. - Treatment Team Participation Was Patient/Family/SO present at Treatment Team Meeting: Yes <Javi Hayward - Last Filed: 04/04/17 08:34> - Diagnosis (1) Cocaine abuse Status: Acute Interventions: motivational therapy 04/03/17 15:35
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
--- NOTE | 2017-03-29 21:56 | CARD ---
APPROVED REPORT EKG Measurement Heart [id number] <Conclusion> Normal sinus rhythm Normal ECG
--- NOTE | 2017-03-29 22:53 | CP.PCM.PCO ---
Progress - Time Time: 22:52 - Re-Evaluation Re-evaluation Note: 03/29/17 22:52 Was paged by psych to see patient. Went and saw the patient at bedside. Patient is fast asleep. Patient has a history of insomnia and sleeping problems. Have advised psych nurse to call when patient wakes up
--- NOTE | 2017-03-30 06:23 | CP.PCM.CON ---
History of Present Illness - History of Present Illness History of Present Illness: 51 YO M w/ PMH of HLD and herniated disc was seen at bedside. He was admitted to psych after he overdosed on lithium. Says he overdosed on lithium after having a fight with his girlfriend and then panicked and called the police. He admits to using cocaine. 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 Pain is controlled with ultram however, when it wears off the pain is 8/10. He also complains of neck pain and back pain and swelling behind the right shoulder. - Denies any chest pain, palpation, dizziness, nausea, vomiting or diarrhea. Patient also has back problems and was suppose to get a MRI outpatient, but states he is claustrophobic and didn't want to get it done at that time. ROS: as per HPI, 10 systems reviewed found to be negative PMD: none, [facility] visit in [facility]1 year ago PMHx: HLD, multiple vertebral herniations PsurgHx: denies FamilyHx: father murdered, mother alive, sister alive. Denies hx of CAD, DM, [place] , Stroke. SocialHx: 2PPD >10 years, 1 PPD since 16 prior to that, intermittent cocaine abuse since 19. Social ETOH abuse. Past Patient History - Past Medical History & Family History Past Medical History?: Yes - Past Social History Drugs: Other (Patient admits to drug abuse) - CARDIAC Hx Hypertension: No - PULMONARY Hx Tuberculosis: No - NEUROLOGICAL Hx Seizures: No - HEENT Hx HEENT Problems: No - RENAL Hx Chronic Kidney Disease: No - ENDOCRINE/METABOLIC Hx Endocrine Disorders: No - HEMATOLOGICAL/ONCOLOGICAL Hx Human Immunodeficiency Virus (HIV): No - MUSCULOSKELETAL/RHEUMATOLOGICAL Hx Falls: No - GENITOURINARY/GYNECOLOGICAL Hx Sexually Transmitted Disorders: No - PSYCHIATRIC Hx Substance Use: Yes (Cocaine $50 daily) - SURGICAL HISTORY Hx Surgeries: Yes Other/Comment: bilateral hernia when child. - ANESTHESIA Hx Anesthesia: Yes Hx Anesthesia Reactions: No Meds Allergies/Adverse Reactions: Allergies Allergy/AdvReac Type Severity Reaction Status Date / Time No Known Allergies Allergy Verified 03/10/17 09:27 - Medications Medications: Current Medications Acetaminophen (Tylenol 325mg Tab) 650 mg PO Q4 PRN PRN Reason: Pain, moderate (4-7) Al Hydrox/Mg Hydrox/Simethicone (Maalox Plus 30 Ml) 30 ml PO Q4 PRN PRN Reason: Dyspepsia Diphenhydramine HCl (Benadryl) 50 mg IM Q6 PRN PRN Reason: Extrapyramidal S/S Unable PO Diphenhydramine HCl (Benadryl) 50 mg PO Q6 PRN PRN Reason: Extrapyramidal Symptoms Haloperidol (Haldol) 5 mg PO Q4 PRN PRN Reason: Agitation Haloperidol Lactate (Haldol) 5 mg IM Q4 PRN PRN Reason: Agitation, Unable to Take PO Lorazepam (Ativan) 2 mg IM Q4 PRN PRN Reason: Anxiety/Agitation,Unable PO Lorazepam (Ativan) 2 mg PO Q4 PRN PRN Reason: Anxiety/Agitation Magnesium Hydroxide (Milk Of Magnesia) 30 ml PO HS PRN PRN Reason: Constipation Nicotine (Nicoderm Cq) 1 patch TD DAILY KIRK Last Admin: 03/29/17 17:28 Dose: 1 patch Tramadol HCl (Ultram) 50 mg PO Q6 PRN PRN Reason: Pain, severe (8-10) Last Admin: 03/29/17 22:17 Dose: 50 mg Physical Exam - Constitutional Appears: No Acute Distress - Head Exam Head Exam: NORMAL INSPECTION - Eye Exam Eye Exam: Normal appearance - Neck Exam Additional comments: spurling negative b/l - Respiratory Exam Respiratory Exam: Clear to Auscultation Bilateral. absent: Rales, Rhonchi, Wheezes - Cardiovascular Exam Cardiovascular Exam: REGULAR RHYTHM, +S1, +S2 - GI/Abdominal Exam GI & Abdominal Exam: Normal Bowel Sounds, Soft. absent: Tenderness - Extremities Exam Additional comments: Limited range of motion on flexion up to 45 degrees secondary to pain - Back Exam Additional comments: 2.5 x 2.5 cm circular area if swelling on right scapular region, tender to palpate - Neurological Exam Neurological exam: Alert, CN II-XII Intact, Normal Gait, Oriented x3 Results - Vital Signs Recent Vital Signs: Last Vital Signs Temp 98.2 F 03/29/17 22:00 Pulse 73 03/29/17 22:00 Resp 20 03/29/17 22:00 BP 115/54 L 03/29/17 22:00 Pulse Ox 98 03/29/17 13:47 - Labs Result Diagrams: 03/29/17 03:49 03/29/17 03:49 Labs: Laboratory Results - last 24 hr 03/29/17 10:35 Avella 1.1 Assessment & Plan - Assessment and Plan (Free Text) Assessment: 51 YO M w/ PMH HLD, back pain admitted for lithium overdose 1) right shoulder pain - C/W pain meds - F/U with right shoulder x ray 2)HLD - Has been non compliant with medication. - Will hold because of non compliance 3) Bioplar: - c/w psych medications 4) Avella overdose - C/W psych recommendations. - Lium blood levels decreased from 2.3 to .5 4) DVT prophylaxis - Encourage ambulation lauren 30 min
[2017-03-30 07:41] LABS: T4 5.58 ug/dl (5.5-11.0)
[2017-03-30] MEDS: Naproxen 500 MG TAB PO SCH ×2 (08:57→21:35)
[2017-03-30] MEDS: Pantoprazole 20 mg EC Tab PO SCH (08:58)
--- NOTE | 2017-03-30 09:55 | RAD ---
PROCEDURE: Radiographs of the Right Shoulder HISTORY: worsening right shoulder pain COMPARISON: No prior. FINDINGS: BONES: No acute fracture. JOINTS: Unremarkable. SOFT TISSUES: Normal. OTHER FINDINGS: None. IMPRESSION: No demonstrated fracture or dislocation.
[2017-03-30] MEDS: Venlafaxine 75 mg ER Cap PO SCH (13:40)
[2017-03-30] MEDS: Divalproex 500 mg DR(BID formulation) PO SCH ×2 (13:40→16:11)
--- NOTE | 2017-03-30 16:16 | PCM.PYCHPN ---
Psychiatric Progress Note - Psychiatric Progress Note Patient seen today, length of contact: pt evaluated discussed with team chart reviewed Patient Chief Complaint: I am depressed Problems Identified/Issues Discussed: pt presenting with depressed mood and affect. poor impulse control; denied any current suicidal or homicidal ideations denied perceptual disturbances discussed with pt starting depakote and effexor pt agreed pt reported concerned about his current legal charges DSM 5 Symptoms Update: bipolar disorder cocaine use disorder Medication Change: Yes (start depakote) Medical Record Reviewed: Yes Mental Status Examination - Cognitive Function Orientation: Person, Place Memory: Intact Attention: WNL Concentration: WNL Association: WNL Fund of Knowledge: Poor - Mood Mood: Depressed, Anxious - Affect Affect: Constricted - Speech Speech: Appropriate - Formal Thought Process Formal Thought Process: No Impairment, Circumstantial - Suicidal Ideation Suicidal Ideation: No - Homicidal Ideation Homicidal Ideation: No Goal/Treatment Plan - Goal/Treatment Plan Need for Continued Stay: Severe depression anxiety, Discharge may exacerbated symptoms Progress Toward Problem(s) and Goals/Treatment Plan: depakote 500mg bid neurontin 300mg tid effexor 75mg group and supportive therapy Estimated Date of D/C: 04/03/17
[2017-03-31] MEDS: Naproxen 500 MG TAB PO SCH ×2 (08:56→21:16)
[2017-03-31] MEDS: Venlafaxine 75 mg ER Cap PO SCH (08:57)
[2017-03-31] MEDS: Divalproex 500 mg DR(BID formulation) PO SCH ×2 (08:57→17:47)
--- NOTE | 2017-03-31 10:05 | CP.PCM.PN ---
Subjective - Date & Time of Evaluation Date of Evaluation: 03/31/17 Time of Evaluation: 07:10 - Subjective Subjective: Patient seen and examined this morning, NAD, sleeping comfortably on bed. Patient admits right shoulder pain but controlled with medication. Patient denies any sensory issue, numbness, tingling, weakness but admits LROM. Patient denies any diarrhea, n/v/f, chest pain, SOB, abdominal pain or urinary symptoms. denies any cold/hot intolerance, denies skin changes. no appetite change or weight change Objective - Vital Signs/Intake and Output Vital Signs (last 24 hours): Temp Pulse Resp BP Pulse Ox 97.3 F L 70 18 110/75 98 03/31/17 09:09 03/31/17 09:09 03/31/17 09:09 03/31/17 09:09 03/30/17 20:56 - Medications Medications: Current Medications Acetaminophen (Tylenol 325mg Tab) 650 mg PO Q4 PRN PRN Reason: Pain, moderate (4-7) Al Hydrox/Mg Hydrox/Simethicone (Maalox Plus 30 Ml) 30 ml PO Q4 PRN PRN Reason: Dyspepsia Diphenhydramine HCl (Benadryl) 50 mg IM Q6 PRN PRN Reason: Extrapyramidal S/S Unable PO Diphenhydramine HCl (Benadryl) 50 mg PO Q6 PRN PRN Reason: Extrapyramidal Symptoms Divalproex Sodium (Depakote Dr(*Bid*)) 500 mg PO BID [facility] Last Admin: 03/31/17 08:57 Dose: 500 mg Gabapentin (Neurontin) 300 mg PO TID [facility] Last Admin: 03/31/17 08:56 Dose: 300 mg Haloperidol (Haldol) 5 mg PO Q4 PRN PRN Reason: Agitation Haloperidol Lactate (Haldol) 5 mg IM Q4 PRN PRN Reason: Agitation, Unable to Take PO Lorazepam (Ativan) 2 mg IM Q4 PRN PRN Reason: Anxiety/Agitation,Unable PO Lorazepam (Ativan) 2 mg PO Q4 PRN PRN Reason: Anxiety/Agitation Magnesium Hydroxide (Milk Of Magnesia) 30 ml PO HS PRN PRN Reason: Constipation Naproxen (Naproxen) 500 mg PO Q12 [facility] Last Admin: 03/31/17 08:56 Dose: 500 mg Nicotine (Nicoderm Cq) 1 patch TD DAILY [facility] Last Admin: 03/31/17 08:55 Dose: 1 patch Pantoprazole Sodium (Protonix Ec Tab) 20 mg PO DAILY [facility] Last Admin: 03/30/17 08:58 Dose: 20 mg Tramadol HCl (Ultram) 50 mg PO Q6 PRN PRN Reason: Pain, severe (8-10) Last Admin: 03/30/17 16:13 Dose: 50 mg Venlafaxine HCl (Effexor Xr) 75 mg PO DAILY [facility] Last Admin: 03/31/17 08:57 Dose: 75 mg - Labs Labs: 03/29/17 03:49 03/29/17 03:49 - Constitutional Appears: No Acute Distress - Head Exam Head Exam: ATRAUMATIC, NORMAL INSPECTION, NORMOCEPHALIC - Eye Exam Eye Exam: EOMI, Normal appearance, PERRL Pupil Exam: NORMAL ACCOMODATION - ENT Exam ENT Exam: Mucous Membranes Moist, Normal Exam - Neck Exam Neck Exam: Normal Inspection - Respiratory Exam Respiratory Exam: Clear to Ausculation Bilateral, NORMAL BREATHING PATTERN - Cardiovascular Exam Cardiovascular Exam: REGULAR RHYTHM, +S1, +S2 - GI/Abdominal Exam GI & Abdominal Exam: Soft, Normal Bowel Sounds - Extremities Exam Additional comments: right shoulder exam: norris test positive, empty can test positive, - Back Exam Back Exam: NORMAL INSPECTION - Neurological Exam Neurological Exam: Alert, Awake, CN II-XII Intact, Oriented x3 - Psychiatric Exam Psychiatric exam: Normal Affect - Skin Skin Exam: Dry, Intact, Normal Color Assessment and Plan - Assessment and Plan (Free Text) Assessment: A/P: 51 YO M w/ PMH HLD, back pain admitted for lithium overdose and worsening right shoulder pain 1) Right shoulder pain - Chronic - Rt shoulder xray: No fcx or displacement - C/W pain meds, Neproxen/Ultram - Consider MRI as outpatient 2)HLD - Chol 201, LDL 150 - 10 years CV risk 7%, no indication for Statin at this time 3) Prediabetes - HBA1C 5.8 - Lifestyle modification discussed with patient 4) High TSH - TSH 4.8, Free T4 5.5, may be subclinical hypothyroid - Follow up with PMD in 4 to 6 weeks 5) Levasy overdose - C/W psych recommendations - Lium blood levels decreased 0.4 today 6) Bioplar - c/w psych medications - Management as per phyc 7) Cocain abuse - Urine Tox Positive - Patient was educated 8) DVT prophylaxis - Encourage ambulation every 30mins
[2017-03-31] MEDS: Pantoprazole 20 mg EC Tab PO SCH (13:30)
--- NOTE | 2017-03-31 14:48 | PCM.PYCHPN ---
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 cocaine use disorder hx of bipolar disorder Medication Change: No Medical Record Reviewed: Yes Mental Status Examination - Cognitive Function Orientation: Person, Place Memory: Intact Attention: WNL Concentration: WNL Association: WNL Fund of Knowledge: Poor Decription of patient's judgement and insights: partial insight , poor judgement - Mood Mood: Depressed, Anxious - Affect Affect: Constricted - Speech Speech: Appropriate - Formal Thought Process Formal Thought Process: Circumstantial - Suicidal Ideation Suicidal Ideation: No - Homicidal Ideation Homicidal Ideation: No Goal/Treatment Plan - Goal/Treatment Plan Need for Continued Stay: Severe depression anxiety, Discharge may exacerbated symptoms Progress Toward Problem(s) and Goals/Treatment Plan: continue with depakote 500mg bid, follow up on level on monday neurontin 300mg tid effexor 75mg motivational, group and supportive therapy Estimated Date of D/C: 04/03/17
[2017-04-01] MEDS: Venlafaxine 75 mg ER Cap PO SCH (08:55)
[2017-04-01] MEDS: Pantoprazole 20 mg EC Tab PO SCH (08:55)
[2017-04-01] MEDS: Divalproex 500 mg DR(BID formulation) PO SCH ×2 (08:55→17:28)
[2017-04-01] MEDS: Naproxen 500 MG TAB PO SCH ×2 (08:56→21:14)
--- NOTE | 2017-04-01 09:35 | PCM.PYCHPN ---
Psychiatric Progress Note - Psychiatric Progress Note Patient seen today, length of contact: Patient evaluated, chart reviewed Patient Chief Complaint: "I'm depressed." Problems Identified/Issues Discussed: Patient continues to report that he feels depressed and anxious. He denies current adverse effects to medications. Patient was encouraged to attend groups. He denied psychotic symptoms. He denied current ideation to harm self or others. Medication Change: No Medical Record Reviewed: Yes Consults ordered or reviewed: Medicine consult Mental Status Examination - Cognitive Function Orientation: Person, Place, Situation, Time Memory: Intact Attention: WNL Concentration: WNL Association: WNL Fund of Knowledge: [facility] Decription of patient's judgement and insights: Poor insight/judgment into chronic substance abuse - Mood Mood: Depressed, Anxious - Affect Affect: Constricted - Speech Speech: Appropriate - Formal Thought Process Formal Thought Process: No Impairment Psychotic Thoughts and Behaviors: Denies AH/VH/paranoia/delusions - Suicidal Ideation Suicidal Ideation: No - Homicidal Ideation Homicidal Ideation: No Goal/Treatment Plan - Goal/Treatment Plan Need for Continued Stay: Severe depression anxiety, Discharge may exacerbated symptoms Progress Toward Problem(s) and Goals/Treatment Plan: Cocaine induced mood disorder with depressive features; Cocaine use disorder; hx of Bipolar disorder -Continue Depakote 500 mg PO BID -Continue Effexor 75 mg PO Daily -Nicotine patch provided -Individual and group therapy -Disposition planning Estimated Date of D/C: 04/03/17
[2017-04-02] MEDS: Naproxen 500 MG TAB PO SCH ×2 (08:55→21:23)
[2017-04-02] MEDS: Pantoprazole 20 mg EC Tab PO SCH (08:56)
[2017-04-02] MEDS: Venlafaxine 75 mg ER Cap PO SCH (08:56)
[2017-04-02] MEDS: Divalproex 500 mg DR(BID formulation) PO SCH ×2 (08:56→17:38)
--- NOTE | 2017-04-02 10:17 | PCM.PYCHPN ---
Psychiatric Progress Note - Psychiatric Progress Note Patient seen today, length of contact: Patient evaluated, chart reviewed Patient Chief Complaint: "I'm depressed." Problems Identified/Issues Discussed: Patient continues to report that he feels depressed. He denies current adverse effects to medications. Patient was encouraged to attend groups. He denied psychotic symptoms. He denied current ideation to harm self or others. Medication Change: No Medical Record Reviewed: Yes Consults ordered or reviewed: Medicine consult Mental Status Examination - Cognitive Function Orientation: Person, Place, Situation, Time Memory: Intact Attention: WNL Concentration: WNL Association: WN Fund of Knowledge: [facility] Decription of patient's judgement and insights: Poor insight/judgment into chronic substance abuse - Mood Mood: Depressed - Affect Affect: Constricted - Speech Speech: Appropriate - Formal Thought Process Formal Thought Process: No Impairment Psychotic Thoughts and Behaviors: Denies AH/VH/paranoia/delusions - Suicidal Ideation Suicidal Ideation: No - Homicidal Ideation Homicidal Ideation: No Goal/Treatment Plan - Goal/Treatment Plan Need for Continued Stay: Severe depression anxiety, Discharge may exacerbated symptoms Progress Toward Problem(s) and Goals/Treatment Plan: Cocaine induced mood disorder with depressive features; Cocaine use disorder; hx of Bipolar disorder -Continue Depakote 500 mg PO BID -Continue Effexor 75 mg PO Daily -Nicotine patch provided -Individual and group therapy -Disposition planning Estimated Date of D/C: 04/05/17
[2017-04-03] MEDS: Naproxen 500 MG TAB PO SCH ×2 (08:47→21:03)
[2017-04-03] MEDS: Pantoprazole 20 mg EC Tab PO SCH (08:56)
[2017-04-03] MEDS: Divalproex 500 mg DR(BID formulation) PO SCH (09:00)
[2017-04-03 09:22] VITALS: RESP 18
--- NOTE | 2017-04-03 15:46 | CP.PCM.PN ---
Subjective - Date & Time of Evaluation Date of Evaluation: 04/03/17 Time of Evaluation: 10:00 - Subjective Subjective: Patient seen and examined this morning, NAD,walking in hallway. Patient admits right shoulder pain but controlled with medication. Patient denies any sensory issue, numbness, tingling, weakness but admits LROM. Patient denies any diarrhea , n/v/f, chest pain, SOB, abdominal pain or urinary symptoms. denies any cold/ hot intolerance, denies skin changes. no appetite change or weight change Objective - Vital Signs/Intake and Output Vital Signs (last 24 hours): Temp Pulse Resp BP Pulse Ox 96.9 F L 66 18 126/77 98 04/03/17 09:00 04/03/17 09:00 04/03/17 09:00 04/03/17 09:00 03/30/17 20:56 - Medications Medications: Current Medications Acetaminophen (Tylenol 325mg Tab) 650 mg PO Q4 PRN PRN Reason: Pain, moderate (4-7) Al Hydrox/Mg Hydrox/Simethicone (Maalox Plus 30 Ml) 30 ml PO Q4 PRN PRN Reason: Dyspepsia Diphenhydramine HCl (Benadryl) 50 mg IM Q6 PRN PRN Reason: Extrapyramidal S/S Unable PO Diphenhydramine HCl (Benadryl) 50 mg PO Q6 PRN PRN Reason: Extrapyramidal Symptoms Divalproex Sodium (Depakote Dr(*Bid*)) 750 mg PO BID [facility] Gabapentin (Neurontin) 300 mg PO TID [facility] Last Admin: 04/03/17 12:58 Dose: 300 mg Haloperidol (Haldol) 5 mg PO Q4 PRN PRN Reason: Agitation Haloperidol Lactate (Haldol) 5 mg IM Q4 PRN PRN Reason: Agitation, Unable to Take PO Lorazepam (Ativan) 2 mg IM Q4 PRN PRN Reason: Anxiety/Agitation,Unable PO Magnesium Hydroxide (Milk Of Magnesia) 30 ml PO HS PRN PRN Reason: Constipation Naproxen (Naproxen) 500 mg PO Q12 [facility] Last Admin: 04/03/17 08:47 Dose: 500 mg Nicotine (Nicoderm Cq) 1 patch TD DAILY [facility] Last Admin: 04/03/17 08:56 Dose: 1 patch Pantoprazole Sodium (Protonix Ec Tab) 20 mg PO DAILY [facility] Last Admin: 04/03/17 08:56 Dose: 20 mg Tramadol HCl (Ultram) 50 mg PO Q6 PRN PRN Reason: Pain, severe (8-10) Last Admin: 03/31/17 17:48 Dose: 50 mg Venlafaxine HCl (Effexor Xr) 75 mg PO DAILY [facility] Last Admin: 04/02/17 08:56 Dose: 75 mg - Labs Labs: 03/29/17 03:49 03/29/17 03:49 - Constitutional Appears: No Acute Distress - Head Exam Head Exam: NORMAL INSPECTION - Eye Exam Eye Exam: Normal appearance - ENT Exam ENT Exam: Mucous Membranes Moist - Neck Exam Neck Exam: Normal Inspection - Respiratory Exam Respiratory Exam: Clear to Ausculation Bilateral, NORMAL BREATHING PATTERN - Cardiovascular Exam Cardiovascular Exam: REGULAR RHYTHM - GI/Abdominal Exam GI & Abdominal Exam: Soft, Normal Bowel Sounds - Extremities Exam Additional comments: right shoulder LROM due to plan no change from previous exam - Back Exam Back Exam: NORMAL INSPECTION - Neurological Exam Neurological Exam: Alert, Awake, Oriented x3 - Psychiatric Exam Psychiatric exam: Normal Affect - Skin Skin Exam: Normal Color Assessment and Plan - Assessment and Plan (Free Text) Assessment: A/P: 51 YO M w/ PMH HLD, back pain admitted for lithium overdose and worsening right shoulder pain 1) Right shoulder pain - Chronic - Rt shoulder xray: No fcx or displacement - C/W pain meds, Neproxen/Ultram - Consider MRI as outpatient 2)HLD - Chol 201, LDL 150 - 10 years CV risk 7%, no indication for Statin at this time 3) Prediabetes - HBA1C 5.8 - Lifestyle modification discussed with patient 4) High TSH - TSH 4.8, Free T4 5.5, may be subclinical hypothyroid - Follow up with PMD in 4 to 6 weeks 5) [place] overdose - C/W psych recommendations - Lium blood levels decreased 0.4 today 6) Bioplar - c/w psych medications - Management as per phyc 7) Cocain abuse - Urine Tox Positive - Patient was educated 8) DVT prophylaxis - Encourage ambulation every 30mins
[2017-04-03] MEDS: Divalproex 250 mg DR(BID formulation) PO SCH (17:17)
[2017-04-03] MEDS: Venlafaxine 75 mg ER Cap PO SCH (17:19)
[2017-04-04] MEDS: Pantoprazole 20 mg EC Tab PO SCH (08:53)
[2017-04-04] MEDS: Venlafaxine 75 mg ER Cap PO SCH (08:53)
[2017-04-04] MEDS: Divalproex 250 mg DR(BID formulation) PO SCH (08:53)
[2017-04-04] MEDS: Naproxen 500 MG TAB PO SCH (08:54)
[2017-04-04 09:20] VITALS: BP 125/74; PULSE 70; TEMP 96.3
--- NOTE | 2017-04-04 13:57 | PCM.PYCHDC ---
Mental Status Examination - Mental Status Examination Orientation: Person, Place, Situation, Time Memory: Intact Mood: Neutral Affect: Broad Speech: Appropriate Attention: WNL Concentration: WNL Association: WNL Fund of Knowledge: WNL Formal Thought Process: No Impairment Description of patient's judgement and insight: partial insight , poor judgement Psychotic Thoughts and Behaviors: pt denied any perceptual disturbances, non elicited Suicidal Ideation: No Current Homicidal Ideation?: No Discharge Summary - Discharge Note Reason for Hospitalization: reports took 20 tabs of lithium 300mg in [facility] after reportedly having argument with girlfriend of 20months. reports that had been arrested for reportedly threatening to tell girlfriend's about affair and then reportedly yelling at girlfriend because she had reported him. pt reports that had received medications from [facility]. in past had been treated in various opd facilities and emergency rooms. reports has been treated for bipolar for many years. reports has been consistantly using crack cocaine for 6 years or more-last admitted use last night. 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 denies previous suicide attempt. reports that has family hx. of substance use ( father), mother with ?psychiatric illness. two adult children reportedly free of known illness as are five grandchildren. has one adult sister (pt) who is reportedly free of psychiatric illness. Consultations:: List each consultation separately and include: 1. Reason for request. 2. Findings. 3. Follow-up Summary of Hospital Course include:: 1. Description of specific treatment plan utilized for patients during their course of treatmen. 2. Summarize the time- course for resolution of acute symptoms and/or regressed behaviors. 3. Describe issues identified and worked on during hospitalization. 4. Describe medication utilized. 5. Describe medical problems identified and treated. 6. Reassessment of suicide risk Summary of Hospital Course: pt on admission was started on depakote for mood stabilization, effexor for depression and neurontin for anxiety Motivational group and supportive therapy was provided pt was compliant with treatment attended groups, no reported side effects of medications on discharge mental status was stable, denied any suicidal or homicidal ideations, denied perceptual disturbances, not danger to self or others follow up arranged by social service agency director with [facility] [employer] - Diagnosis (1) Cocaine abuse Current Visit: No Status: Acute - Final Diagnosis (DSM 5) Condition upon Discharge: FAIR DSM 5: cocaine induced mood disorder with depressive features cocaine use disorder bipolar disorder Disposition: HOME/ ROUTINE Prescriptions/Medication Reconciliation: Divalproex [Depakote DR(*BID*)] 750 mg PO BID 30 Days #180 tcp Gabapentin [Neurontin] 300 mg PO TID 30 Days #90 cap Venlafaxine [Effexor XR] 75 mg PO DAILY 30 Days #30 cer - Antipsychotic Medications Pt discharged on 2 or more routine antipsychotic medications: No
== END 2017-04-04 14:40 | disposition home or self-care (01) | DRG 748 ==
LOC: H.ER 02:59 → H.ERHOLD 13:45 → H.PSYCH 14:42
PROVIDERS: ADMIT Psychiatry & Neurology Psychiatry; ATTEND Psychiatry & Neurology Psychiatry
PROC: HZ52ZZZ Individual Psychotherapy for Substance Abuse Treatment, Cognitive-Behavioral (ICD-10-PCS; principal; 2017-03-29)
PROC: GZHZZZZ Group Psychotherapy (ICD-10-PCS; 2017-03-29)
PROC: GZ58ZZZ Individual Psychotherapy, Cognitive-Behavioral (ICD-10-PCS; 2017-03-29)
DX: F14.14 Cocaine abuse with cocaine-induced mood disorder (principal); T43.591A Poisoning by other antipsychotics and neuroleptics, accidental (unintentional), initial encounter; F10.10 Alcohol abuse, uncomplicated; F31.9 Bipolar disorder, unspecified; M25.511 Pain in right shoulder; G89.29 Other chronic pain; E78.00 Pure hypercholesterolemia, unspecified; E78.5 Hyperlipidemia, unspecified; F40.240 Claustrophobia; R73.03 Prediabetes; Z91.14 Patient's other noncompliance with medication regimen; Z91.19 Patient's noncompliance with other medical treatment and regimen; F17.210 Nicotine dependence, cigarettes, uncomplicated; Z79.82 Long term (current) use of aspirin; Y92.9 Unspecified place or not applicable

== ENCOUNTER 2017-07-04 13:42 | Emergency (ER) | payer MEDICAID, OTHER ==
[2017-07-04 13:42] VITALS: BMI 26.4
[2017-07-04 13:50] VITALS: RESP 18
--- NOTE | 2017-07-04 14:44 | RAD ---
HISTORY: clearance COMPARISON: No prior. FINDINGS: LUNGS: The lungs are well inflated and clear. PLEURA: No significant pleural effusion identified, no pneumothorax apparent. CARDIOVASCULAR: Normal. OSSEOUS STRUCTURES: No significant abnormalities. VISUALIZED UPPER ABDOMEN: Normal. OTHER FINDINGS: None. IMPRESSION: No active pulmonary disease.
--- NOTE | 2017-07-04 15:03 | ED PDOC ---
HPI: Psych/Substance Abuse Time Seen by Provider: 07/04/17 13:52 Chief Complaint (Nursing): Medical Clearance Chief Complaint (Provider): psychiatric evaluation History Per: Patient History/Exam Limitations: no limitations Onset/Duration Of Symptoms: Days (5 weeks) Current Symptoms Are (Timing): Still Present Associated Symptoms: Depression, Suicidal Thoughts, Suicidal Plan Additional Complaint(s): 52 year old male is under police custody presents to the ED stating for the past 5 weeks he feels depressed and hopeless. States he has been in and out of the [facility] since May. Also reports he has not taken his medication, Gabapentin and Depakote. States he wants to hang himself and overdose on Xanax. PMD: No Family Provider Past Medical History Reviewed: Historical Data, Nursing Documentation, Vital Signs Vital Signs: Last Vital Signs Temp 97.0 F L 07/04/17 13:47 Pulse 75 07/04/17 13:47 Resp 18 07/04/17 13:47 BP 127/85 07/04/17 13:47 Pulse Ox 99 07/04/17 13:47 - Medical History PMH: Anxiety, Back Problems, Bipolar Disorder, Depression, Hypercholesterolemia Denies: Diabetes, Hepatitis, HIV, HTN, Chronic Kidney Disease, Seizures, Sexually Transmitted Disease - Surgical History Surgical History: Hernia Repair (b/l inguinal) - Family History Family History: States: Unknown Family Hx - Immunization History Hx Tetanus Toxoid Vaccination: No Hx Influenza Vaccination: No Hx Pneumococcal Vaccination: No - Home Medications Home Medications: Ambulatory Orders Medication Instructions Recorded Aspirin 81 mg PO DAILY 30 Days #30 tab.chew 01/03/17 Atorvastatin [Lipitor] 40 mg PO DAILY #30 tab 01/03/17 Divalproex [Depakote DR(*BID*)] 750 mg PO BID 30 Days #180 tcp 04/04/17 Gabapentin [Neurontin] 300 mg PO TID 30 Days #90 cap 04/04/17 Venlafaxine [Effexor XR] 75 mg PO DAILY 30 Days #30 cer 04/04/17 - Allergies Allergies/Adverse Reactions: Allergies Allergy/AdvReac Type Severity Reaction Status Date / Time No Known Allergies Allergy Verified 03/10/17 09:27 Review of Systems ROS Statement: Except As Marked, All Systems Reviewed And Found Negative Psych: Positive for: Depression, Suicidal ideation. Negative for: Other ( homicidal ideation) Physical Exam - Reviewed Nursing Documentation Reviewed: Yes Vital Signs Reviewed: Yes - Physical Exam Appears: Positive for: Non-toxic Head Exam: Positive for: ATRAUMATIC, NORMAL INSPECTION, NORMOCEPHALIC Skin: Positive for: Normal Color, Warm, Dry Eye Exam: Positive for: EOMI, Normal appearance, PERRL ENT: Positive for: Normal ENT Inspection Neck: Positive for: Normal, Painless ROM, Supple. Negative for: Decreased ROM Cardiovascular/Chest: Positive for: Regular Rate, Rhythm. Negative for: Murmur Respiratory: Positive for: Normal Breath Sounds. Negative for: Decreased Breath Sounds, Accessory Muscle Use, Respiratory Distress Gastrointestinal/Abdominal: Positive for: Normal Exam, Bowel Sounds, Soft. Negative for: Tenderness, Guarding, Rebound Back: Positive for: Normal Inspection. Negative for: L CVA Tenderness, R CVA Tenderness Extremity: Positive for: Normal ROM. Negative for: Tenderness, Pedal Edema, Deformity Neurologic/Psych: Positive for: Alert, Oriented (x3), Mood/Affect (crying but consolable). Negative for: Motor/Sensory Deficits - Laboratory Results Result Diagrams: 07/04/17 15:02 07/04/17 15:02 - ECG O2 Sat by Pulse Oximetry: 99 (RA) Pulse Ox Interpretation: Normal Medical Decision Making Medical Decision Making: Time: 1354 Initial Plan: --EKG --Acetaminophen --Alcohol Serum --CMP --Drug Screen --Salicylate --Crisis Evaluation --CBC w/ Differential --Chest Portable --1:1 Observation --Urinalysis --Reevaluation Time: 1443 HISTORY: clearance COMPARISON: No prior. FINDINGS: LUNGS: The lungs are well inflated and clear. PLEURA: No significant pleural effusion identified, no pneumothorax apparent. CARDIOVASCULAR: Normal. OSSEOUS STRUCTURES: No significant abnormalities. VISUALIZED UPPER ABDOMEN: Normal. OTHER FINDINGS: None. IMPRESSION: No active pulmonary disease. Pt. evaluated by Ramya, electronics utility worker, who spoke with Dr. Lockhart and cleared pt. for incarceration. Scribe Attestation: Documented by Blake Franks, acting as a scribe for Jose De Jesus Rodriguez PA-C Provider Scribe Attestation: All medical record entries made by the Scribe were at my direction and personally dictated by me. I have reviewed the chart and agree that the record accurately reflects my personal performance of the history, physical exam, medical decision making, and the department course for this patient. I have also personally directed, reviewed, and agree with the discharge instructions and disposition. Disposition - Clinical Impression Clinical Impression: Adjustment disorder with depressed mood - Patient ED Disposition Is Patient to be Admitted: No - Disposition Disposition: Discharged/Transfer to Law Enforcement Disposition Time: 17:50 Condition: STABLE Additional Instructions: Patient is medically and psychiatrically cleared for incarceration Instructions: Adjustment Disorder Forms: [employer] (Faroese) Print Language: PORTUGUESE
[2017-07-04 15:16] LABS: SQUAMOUS EPITHIAL < 1 /hpf (0-5); URINE BILIRUBIN NEGATIVE (NEGATIVE); URINE BLOOD NEGATIVE (NEGATIVE); URINE CLARITY SLIGHTY-CLOUDY (Clear); URINE COLOR YELLOW (YELLOW); URINE GLUCOSE (UA) NEG (Normal); URINE LEUKOCYTE ESTERASE NEG Leu/uL (Negative); URINE PROTEIN NEGATIVE (NEGATIVE); URINE UROBILINOGEN 0.2-1.0 mg/dL (0.2-1.0)
[2017-07-04 15:21] LABS: BASO # 0.1 K/uL (0.0-0.2); BASO % 0.9 % (0.0-2.0); EOS # 0.2 K/uL (0.0-0.7); EOS % 2.5 % (0.0-4.0); LYMPH # 1.4 K/uL (1.0-4.3); LYMPH % 16.1 % (20.0-40.0); MEAN CELL VOLUME 94.1 fl (80.0-94.0); MEAN CORPUSCULAR HEMOGLOBIN 33.3 pg (27.0-31.0); MEAN CORPUSCULAR HGB CONC 35.4 g/dL (33.0-37.0); MEAN PLATELET VOLUME 7.7 fl (7.2-11.7); MONO # 0.9 K/uL (0.0-0.8); MONO % 9.7 % (0.0-10.0); NEUT # 6.3 K/uL (1.8-7.0); NEUT % 70.8 % (50.0-75.0); NRBC % 0.1 % (0.0-0.0); RBC 4.8 Mil/uL (4.40-5.90); RED CELL DISTRIBUTION WIDTH 13.2 % (11.5-14.5); WHITE BLOOD COUNT 8.9 K/uL (4.8-10.8)
[2017-07-04 15:23] LABS: ALB/GLOB RATIO 1.1 (1.0-2.1); ALBUMIN 4.2 g/dL (3.5-5.0); ALT/SGPT 33 U/L (21-72); AST/SGOT 22 U/L (17-59); BLOOD UREA NITROGEN 13 mg/dl (9-20); CALCIUM 9.8 mg/dL (8.4-10.2); GFR AFRICAN-AMERICAN > 60; GFR NON-AFRICAN AMERICAN > 60
[2017-07-04 15:33] LABS: ACETAMINOPHEN < 10.0 ug/ml (10.0-30.0); SALICYLATE < 1.0 mg/dl
[2017-07-04 15:55] LABS: BARBITURATES, UR NEGATIVE (NEGATIVE); BENZODIAZEPINES, UR NEGATIVE (NEGATIVE); OPIATES, UR NEGATIVE (NEGATIVE); PHENCYCLIDINE, UR NEGATIVE (NEGATIVE)
[2017-07-04 22:40] VITALS: BP 124/80; PULSE 78; TEMP 98.2; O2SAT 98
--- NOTE | 2017-07-05 17:23 | CARD ---
APPROVED REPORT EKG Measurement Heart [id number] <Conclusion> Normal sinus rhythm Normal ECG
== END 2017-07-04 18:00 ==
LOC: H.ER 13:42
DX: F43.21 Adjustment disorder with depressed mood (principal); Z02.89 Encounter for other administrative examinations; Z00.8 Encounter for other general examination; Z86.59 Personal history of other mental and behavioral disorders; E78.00 Pure hypercholesterolemia, unspecified; Z79.82 Long term (current) use of aspirin